=== PATIENT | male | born 1945 | race Caucasian/White ===

== ENCOUNTER 2018-07-22 08:28 | Day surgery (SDC) | payer MEDICARE ==
[~2018-07-22] VITALS: Ht 172.7 cm; Wt 83.8 kg
[2018-07-22] MEDS ORDERED: CHOL500045 PO (09:38)
[2018-07-22] MEDS ORDERED: IBUP-1223 PO (09:38)
[2018-07-22] MEDS ORDERED: VITAMIN B12 PO (09:38)
[2018-07-22] MEDS ORDERED: ASPI-496 PO (09:38)
[2018-07-22] MEDS ORDERED: LISI-170 PO (09:38)
[2018-07-22] MEDS ORDERED: HYDR-3240 PO (09:38)
[2018-07-22] MEDS ORDERED: CHOL100012 PO (09:38)
[2018-07-22] MEDS ORDERED: SODIUM CHLORIDE 0.9% 1,000 ML IV SCH (09:40)
[2018-07-22 09:55] VITALS: BP 147/76
[2018-07-22] MEDS ORDERED: PLEASE ENTER HEIGHT AND WEIGHT MC SCH (10:00)
[2018-07-22 10:08] LABS: INTERNATIONAL NORMALIZED RATIO 0.96 (0.93-1.1); PROTHROMBIN TIME 10.2 Seconds (9.6-11.5)
[2018-07-22] MEDS ORDERED: FENTANYL PF 100 MCG/2ML ONE (10:15)
[2018-07-22] MEDS ORDERED: MIDAZOLAM 1 MG/ML, 5ML ONE (10:15)
[2018-07-22] MEDS ORDERED: FLUMAZENIL 0.1 MG/1 ML, 5ML ONE (10:15)
[2018-07-22] MEDS ORDERED: NALOXONE 1 MG/ML, 2ML ONE (10:15)
== END 2018-07-22 13:00 | disposition home or self-care (01) ==
LOC: OUT 08:28 → EDSTATUS 10:30 → OUT 13:00
PROVIDERS: ATTEND Nurse Practitioner Family
DX: K73.9 Chronic hepatitis, unspecified (principal); E83.111 Hemochromatosis due to repeated red blood cell transfusions; I10 Essential (primary) hypertension; E78.5 Hyperlipidemia, unspecified; F10.20 Alcohol dependence, uncomplicated; Z98.890 Other specified postprocedural states; Z79.899 Other long term (current) drug therapy
CPT/HCPCS: 36415; 47000; 76942; 85610; 88307; 88313; 99156; 99157; J2250; J3010; J7030; J2310

== ENCOUNTER → 2020-11-27 | Outpatient (CLI) | payer MEDICARE ==
[~2020-11-27] MED LIST: ASPI-496 PO; CHOL100012 PO; CHOL500045 PO; HYDR-2214 PO; IBUP-1223 PO; LISI-170 PO; VITAMIN B12 PO
== END | disposition home or self-care (01) ==
LOC: RAD 15:26
PROVIDERS: ATTEND Nurse Practitioner Family
DX: M79.89 Other specified soft tissue disorders (principal)